=== PATIENT | male | born 1950 | race Caucasian/White ===

== ENCOUNTER 2019-03-26 17:13 | Emergency (ER) | payer MEDICARE, OTHER ==
[2019-03-26] MEDS: SODIUM CHLORIDE 0.9% 1000ML 1,000 ML IVS ONE (17:51)
[2019-03-26] MEDS: TETANUS,DIPHTHERIA,PERTUSSIS 1 EA SYG IM ONE (18:21)
[2019-03-26] MEDS: MORPHINE SULFATE INJ 10 MG/ML VIAL IV ONE ×2 (19:10→20:25)
[2019-03-26] MEDS: SODIUM CHLORIDE 0.9% 1000ML 1,000 ML IVS PRN (19:50)
[2019-03-26] MEDS: ONDANSETRON ODT 8 MG TAB SL ONE (20:25)
--- NOTE | 2019-03-26 20:34 | ED.PDOC ---
History of Present Illness - General Chief Complaint: Bite: Animal/Insect/Human Stated Complaint: Copperhead bite Time Seen by Provider: 03/26/19 17:17 Source: patient, RN notes reviewed, EMS Exam Limitations: no limitations - History of Present Illness Initial Comments: Patient presented about 10 minutes after copperhead bite to his middle right finger. Patient is right-handed. Patient often has to deal with copperhead snakes and he feels 100% certain that that is the type of snake that he had been likely. Patient is overall healthy and has no past medical history. He does not take any medications [id number] or prescription. He has no known drug allergies and no allergy to papaya. He has no shortness of breath, fever, chills, or diaphoresis. He rates his pain at a 2 out of 10. Timing/Duration: momentarily Severity: moderate Improving Factors: immobilization Worsening Factors: movement Associated Symptoms: denies symptoms Allergies/Adverse Reactions: Allergies NO KNOWN ALLERGY Allergy (Verified 03/26/19 19:10) Home Medications: Ambulatory Orders NK 03/26/19 Review of Systems - Review of Systems Constitutional: States: no symptoms reported. Denies: chills, fever EENTM: States: no symptoms reported. Denies: blurred vision, ear discharge, nose congestion, throat pain Respiratory: States: no symptoms reported. Denies: cough, short of breath, wheezing Cardiology: States: no symptoms reported. Denies: chest pain, palpitations Gastrointestinal/Abdominal: States: no symptoms reported. Denies: abdominal pain, diarrhea, nausea, vomiting Musculoskeletal: States: see HPI Past Medical History (General) - Patient Medical History Hx Seizures: No Hx Stroke: No Hx Dementia: No Hx Asthma: No Hx of COPD: No Hx Cardiac Disorders: No Hx Congestive Heart Failure: No Hx Pacemaker: No Hx Hypertension: No Hx Thyroid Disease: No Hx Diabetes: No Hx Gastroesophageal Reflux: No Hx Renal Disease: No Hx Cancer: No Hx of HIV: No Hx MRSA: No - Vaccination History Hx Tetanus, Diphtheria Vaccination: No - unknown - Social History Hx Tobacco Use: No - Triage Comment ED Triage Comment: Patient states he has been bitten by a copperhead snake. He did see the snake and it bit patients middle finger two [place]. Family Medical History - Family History Mother Family History: Unknown Living Status: Unknown Physical Exam - Physical Exam General Appearance: Alert, Comfortable, No apparent distress Eye Exam: bilateral normal Ears, Nose, Throat: hearing grossly normal, normal ENT inspection, normal pharynx Neck: non-tender, full range of motion, supple, normal inspection Respiratory: chest non-tender, lungs clear, normal breath sounds, no respiratory distress, no accessory muscle use Cardiovascular/Chest: normal peripheral pulses, regular rate, rhythm, no edema, no murmur Gastrointestinal/Abdominal: normal bowel sounds, non tender, soft Extremity: other - 2 [place] on right middle finger with ecchymosis and swelling of finger but not hand or elbow or forearm. Normal capillay refill, normal sensation, measured joint and marked Neurologic: no motor/sensory deficits, alert, oriented x 3 Progress - Progress Progress: 03/26/19 20:36 patient being checked every 15 min with swelling now to mid hand but no swelling at the wrist or forearm. good capillary refill and swelling at the finger is decreased. 03/27/19 01:11 patient continues to do well with decreased pain and swelling. Hand has been checked/measured every 15 min. Patient has normal capillary refill and swelling of his finger. - Results/Orders Results/Orders: 03/26/19 17:19 EKG Assessment ONCE 03/26/19 17:30 EKG STAT 03/26/19 19:11 Sodium Chloride 0.9% 1000ML [Ns 1000 ml] 1,000 ml IVS .QD Laboratory Results WBC 5.4 K/mm3 (4.8-10.8) 03/26/19 19:20 RBC 4.78 M/mm3 (4.70-6.10) 03/26/19 19:20 Hgb 14.3 gm/dL (14.0-18.0) 03/26/19 19:20 Hct 42.4 % (42.0-52.0) 03/26/19 19:20 MCV 88.6 fl (80.0-94.0) 03/26/19 19:20 MCH 29.9 pg (27.0-31.0) 03/26/19 19:20 MCHC 33.8 g/dL (33.0-37.0) 03/26/19 19:20 RDW 13.1 % (11.5-14.5) 03/26/19 19:20 Plt Count 201 K/mm3 (130-400) 03/26/19 19:20 MPV 7.4 fl (7.40-10.4) 03/26/19 19:20 Absolute Neuts (auto) 3.90 K/uL (1.8-6.8) 03/26/19 19:20 Absolute Lymphs (auto) 0.90 K/uL (1.0-3.4) L 03/26/19 19:20 Absolute Monos (auto) 0.40 K/uL (0.2-0.8) 03/26/19 19:20 Absolute Eos (auto) 0.10 K/uL (0.0-0.4) 03/26/19 19:20 Absolute Basos (auto) 0.00 K/uL (0.0-0.1) 03/26/19 19:20 Neutrophils % 72.6 % (42.0-78.0) 03/26/19 19:20 Lymphocytes % 16.3 % (20.0-50.0) L 03/26/19 19:20 Monocytes % 7.9 % (2.0-9.0) 03/26/19 19:20 Eosinophils % 2.6 % (1.0-5.0) 03/26/19 19:20 Basophils % 0.6 % (0.0-2.0) 03/26/19 19:20 PT 9.9 SECONDS (9.0-10.9) 03/26/19 19:20 INR 0.99 (0.9-1.15) 03/26/19 19:20 PTT (SP) 26.5 SECONDS (21.8-31.6) 03/26/19 19:20 Fibrinogen 267 mg/dL (210-385) 03/26/19 19:20 Sodium 138 mmol/L (135-145) 03/26/19 19:20 Potassium 3.8 mmol/L (3.6-5.0) 03/26/19 19:20 Chloride 106 mmol/L (101-111) 03/26/19 19:20 Carbon Dioxide 25 mmol/L (21-31) 03/26/19 19:20 Anion Gap 10.8 (12-18) L 03/26/19 19:20 BUN 28 mg/dL (7-18) H 03/26/19 19:20 Creatinine 0.89 mg/dL (0.6-1.3) 03/26/19 19:20 BUN/Creatinine Ratio 31.5 (10-20) H 03/26/19 19:20 Random Glucose 94 mg/dL (70-105) 03/26/19 19:20 Serum Osmolality 280.9 mOsm/L (275-295) 03/26/19 19:20 Calcium 8.4 mg/dL (8.4-10.2) 03/26/19 19:20 Total Bilirubin 1.0 mg/dL (0.2-1.0) 03/26/19 19:20 AST 20 IU/L (10-42) 03/26/19 19:20 ALT 21 IU/L (10-60) 03/26/19 19:20 Alkaline Phosphatase 63 IU/L (42-121) 03/26/19 19:20 Creatine Kinase 129 IU/L (38-174) 03/26/19 19:20 Serum Total Protein 6.3 gm/dL (6.4-8.2) L 03/26/19 19:20 Albumin 3.7 g/dl (3.2-5.5) 03/26/19 19:20 Globulin 2.6 gm/dL (2.3-3.5) 03/26/19 19:20 Albumin/Globulin Ratio 1.4 (1.1-1.9) 03/26/19 19:20 Laboratory Last Values WBC 12.1 K/mm3 (4.8-10.8) H D 03/27/19 01:00 RBC 4.71 M/mm3 (4.70-6.10) 03/27/19 01:00 Hgb 14.3 gm/dL (14.0-18.0) 03/27/19 01:00 Hct 42.0 % (42.0-52.0) 03/27/19 01:00 MCV 89.3 fl (80.0-94.0) 03/27/19 01:00 MCH 30.3 pg (27.0-31.0) 03/27/19 01:00 MCHC 33.9 g/dL (33.0-37.0) 03/27/19 01:00 RDW 13.2 % (11.5-14.5) 03/27/19 01:00 Plt Count 187 K/mm3 (130-400) 03/27/19 01:00 MPV 7.9 fl (7.40-10.4) 03/27/19 01:00 Absolute Neuts (auto) 11.20 K/uL (1.8-6.8) H 03/27/19 01:00 Absolute Lymphs (auto) 0.40 K/uL (1.0-3.4) L 03/27/19 01:00 Absolute Monos (auto) 0.40 K/uL (0.2-0.8) 03/27/19 01:00 Absolute Eos (auto) 0.00 K/uL (0.0-0.4) 03/27/19 01:00 Absolute Basos (auto) 0.00 K/uL (0.0-0.1) 03/27/19 01:00 Neutrophils % 93.0 % (42.0-78.0) H 03/27/19 01:00 Lymphocytes % 3.1 % (20.0-50.0) L 03/27/19 01:00 Monocytes % 3.7 % (2.0-9.0) 03/27/19 01:00 Eosinophils % 0.1 % (1.0-5.0) L 03/27/19 01:00 Basophils % 0.1 % (0.0-2.0) 03/27/19 01:00 PT 10.4 SECONDS (9.0-10.9) 03/27/19 01:00 INR 1.04 (0.9-1.15) 03/27/19 01:00 PTT (SP) 25.6 SECONDS (21.8-31.6) 03/27/19 01:00 Fibrinogen 255 mg/dL (210-385) 03/27/19 01:00 Sodium 138 mmol/L (135-145) 03/27/19 01:00 Potassium 4.4 mmol/L (3.6-5.0) 03/27/19 01:00 Chloride 105 mmol/L (101-111) 03/27/19 01:00 Carbon Dioxide 23 mmol/L (21-31) 03/27/19 01:00 Anion Gap 14.4 (12-18) 03/27/19 01:00 BUN 24 mg/dL (7-18) H 03/27/19 01:00 Creatinine 0.67 mg/dL (0.6-1.3) 03/27/19 01:00 BUN/Creatinine Ratio 35.8 (10-20) H 03/27/19 01:00 Random Glucose 109 mg/dL (70-105) H 03/27/19 01:00 Serum Osmolality 280.3 mOsm/L (275-295) 03/27/19 01:00 Calcium 8.0 mg/dL (8.4-10.2) L 03/27/19 01:00 Total Bilirubin 1.4 mg/dL (0.2-1.0) H D 03/27/19 01:00 AST 24 IU/L (10-42) 03/27/19 01:00 ALT 19 IU/L (10-60) 03/27/19 01:00 Alkaline Phosphatase 61 IU/L (42-121) 03/27/19 01:00 Creatine Kinase 114 IU/L (38-174) 03/27/19 01:00 Serum Total Protein 6.4 gm/dL (6.4-8.2) 03/27/19 01:00 Albumin 3.7 g/dl (3.2-5.5) 03/27/19 01:00 Globulin 2.7 gm/dL (2.3-3.5) 03/27/19 01:00 Albumin/Globulin Ratio 1.4 (1.1-1.9) 03/27/19 01:00 Departure - Departure Clinical Impression: Bite wound Disposition: Discharge to Home or Self Care Condition: Good Departure Forms: ED Discharge - Pt. Copy, Patient Portal Self Enrollment Instructions: DI for Animal Bites Referrals: Quentin Mclean MD [Primary Care Provider] - 1-2 Weeks Home Medications: Ambulatory Orders NK 03/26/19 Additional Instructions: return to ER for increased bleeding, easy bruising, or any temp >100.5, rash, or muscle aches. Follow up with PCP in 2-3 days.
[2019-03-27] MEDS: HYDROCOD/APAP 5/325 (ER DISP) #3 TAB PO ONE (01:34)
[2019-03-27] MEDS: ONDANSETRON ODT (ER DISP) 8 MG TAB PO ONE (01:35)
[2019-03-27 01:47] VITALS: BP 146/89; TEMP 97.6; O2SAT 97
== END 2019-03-27 01:46 | disposition home or self-care (01) ==
LOC: ER 17:13
DX: T63.091A Toxic effect of venom of other snake, accidental (unintentional), initial encounter (principal); M79.89 Other specified soft tissue disorders; Y92.9 Unspecified place or not applicable; Z23 Encounter for immunization
CPT/HCPCS: 36415; 80053; 82550; 85025; 85384; 85610; 85730; 90471; 90715; 93005; J2270; J7030